=== PATIENT | female | born 2000 | race Caucasian/White ===

== ENCOUNTER 2024-04-08 14:27 | Emergency (ER) | payer SELFPAY ==
[~2024-04-08] VITALS: Ht 172.7 cm; Wt 54.5 kg
[2024-04-08 14:35] VITALS: BP 146/79; PULSE 80; RESP 18; TEMP 98.4; O2SAT 100
[2024-04-08] MEDS ORDERED: FLUORESCEIN SODIUM 1MG/STRIP BOTHEYE ONE (15:45)
[2024-04-08] MEDS ORDERED: TETRACAINE 0.5% OPHTH DROPS 4ML BOTHEYE ONE (15:45)
[2024-04-08] MEDS: FLUORESCEIN SODIUM 1MG/STRIP BOTHEYE NR (17:45)
[2024-04-08] MEDS: TETRACAINE 0.5% OPHTH DROPS 4ML BOTHEYE NR (17:45)
[2024-04-08] MEDS ORDERED: CIPR2.5D20 EACHEYE (18:05)
== END 2024-04-08 19:52 | disposition home or self-care (01) ==
LOC: ER 14:27
DX: S05.02XA Injury of conjunctiva and corneal abrasion without foreign body, left eye, initial encounter (principal); S05.01XA Injury of conjunctiva and corneal abrasion without foreign body, right eye, initial encounter; X58.XXXA Exposure to other specified factors, initial encounter; Y93.89 Activity, other specified; Y92.89 Other specified places as the place of occurrence of the external cause; Y99.8 Other external cause status
CPT/HCPCS: 99284; Z7610